=== PATIENT | male | born 1960 | race Caucasian/White ===

== ENCOUNTER → 2018-06-30 | Outpatient (CLI) | payer MEDICARE ==
[~2018-06-30] MED LIST: ATOR40TA78 PO; IBUP200C8 PO; MULT-658 PO; TRAZ-136 PO; VENL75TA PO
== END | disposition home or self-care (01) ==
LOC: MERGE 10:00 → STAR 10:04
PROVIDERS: ATTEND Surgery
DX: Z01.812 Encounter for preprocedural laboratory examination (principal); I44.4 Left anterior fascicular block; K40.90 Unilateral inguinal hernia, without obstruction or gangrene, not specified as recurrent
CPT/HCPCS: 93005

== ENCOUNTER 2018-07-07 08:09 | Day surgery (SDC) | payer MEDICARE ==
[~2018-07-07] VITALS: Ht 175.3 cm; Wt 79.5 kg
[~2018-07-07 08:09] MED LIST changes: +BUPIVACAINE/PF-EPI 0.5% 1:200K ONE
[2018-07-07] MEDS ORDERED: SCOPOLAMINE PATCH, 1.5MG PATCH.TD72 TD ONE (08:30)
[2018-07-07] MEDS ORDERED: GABAPENTIN 300 MG CAPSULE PO ONE (08:30)
[2018-07-07] MEDS ORDERED: LACTATED RINGERS 1,000 ML IV SCH (08:30)
[2018-07-07] MEDS ORDERED: ACETAMINOPHEN 500 MG TABLET PO ONE (08:30)
[2018-07-07] MEDS ORDERED: ONDANSETRON ODT 8 MG PO ONE (08:30)
[2018-07-07 08:32] VITALS: BP 123/77
[2018-07-07] MEDS ORDERED: FENTANYL PF 100 MCG/2ML ONE ×2 (09:11→10:11)
[2018-07-07] MEDS ORDERED: MIDAZOLAM 1 MG/ML, 2ML ONE (09:11)
[2018-07-07] MEDS ORDERED: ONDANSETRON 2MG/ML, 2ML ONE (09:20)
[2018-07-07] MEDS ORDERED: CEFAZOLIN 1,000 MG ONE (09:20)
[2018-07-07] MEDS ORDERED: DEXAMETHASONE 4 MG/ML, 1ML ONE (09:20)
[2018-07-07] MEDS ORDERED: PROPOFOL 10 MG/ML, 20ML ONE (09:20)
[2018-07-07] MEDS ORDERED: OXYcodone 5 MG/5 ML ORAL.SOL UDC ONE (11:04)
[2018-07-07] MEDS ORDERED: hydrALAzine 20 MG/ML, 1ML IV PRN (12:00)
[2018-07-07] MEDS ORDERED: MEPERIDINE/PF 25MG/0.5ML IVPush PRN (12:00)
[2018-07-07] MEDS ORDERED: LABETALOL 5MG/ML, 20ML IV PRN (12:00)
[2018-07-07] MEDS ORDERED: PROMETHAZINE 25 MG/ML, 1ML IV PRN (12:00)
[2018-07-07] MEDS ORDERED: ALBUTEROL SULFATE 2.5 MG/3 ML NPPB PRN (12:00)
[2018-07-07] MEDS ORDERED: HYDROmorphone 1 MG/ML, 1ML IV PRN (12:00)
[2018-07-07] MEDS ORDERED: OXYcodone 5 MG/5 ML ORAL.SOL UDC PO PRN (12:00)
[2018-07-07] MEDS ORDERED: LORazepam 2 MG/ML, 1ML IVPush PRN (12:00)
[2018-07-07] MEDS ORDERED: FENTANYL PF 100 MCG/2ML IV PRN (12:00)
== END 2018-07-07 13:45 | disposition home or self-care (01) ==
LOC: OUT 08:09 → MERGE 10:00 → OUT 13:45
PROVIDERS: ATTEND Surgery
DX: I48.91 Unspecified atrial fibrillation (principal); F17.210 Nicotine dependence, cigarettes, uncomplicated
CPT/HCPCS: 49650; C1781; J0690; J1100; J2250; J2405; J2704; J3010; J7120; Q0162

== ENCOUNTER 2018-10-09 23:50 | Emergency (ER) | payer MEDICARE ==
[~2018-10-09] VITALS: Ht 175.3 cm; Wt 82.0 kg
[~2018-10-09 23:50] MED LIST changes: -BUPIVACAINE/PF-EPI 0.5% 1:200K ONE; -TRAZ-136 PO; +TRAZ50TA66 PO
[2018-10-09 23:55] VITALS: BP 126/88
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
[2018-10-10] MEDS ORDERED: CITA10TA4 PO (00:09)
--- NOTE | 2018-10-10 00:40 | NUR ---
PT TO XRAY
--- NOTE | 2018-10-10 01:00 | NUR ---
TASK RN: PT RETURNED FROM CT, SITTING UP IN [facility], AWAKE/ALERT. SLIGHTLY SLURRED SPEECH NOTED. PT STATES THAT HE "HAS TO PEE" TO RESEARCH SPECIALIST. RESEARCH SPECIALIST OFFERED URINAL; PT REFUSING TO USE URINAL. RESEARCH SPECIALIST REPORTED TO RN THAT PT NEEDED TO URINATE AND REFUSING URINAL. THIS RN TO ROOM. PT NOT IN ROOM, FOUND IN BATHROOM. REFUSING TO PROVIDE UA SAMPLE, "I ALREADY WENT. YOU DON'T NEED THAT FROM ME. I KNOW I HAVE BROKEN RIBS- THIS ISN'T THE FIRST TIME". PT AMBULATED STEADILY TO ROOM WITH RN. "JUST SO YOU KNOW, I'LL BE WALKING OUT OF HERE IN 15 MINUTES" "IT WASN'T BY IDEA TO COME HERE- SO I'LL BE LEAVING". ERP MADE AWARE. SPO2 MONITOR IN PLACE. SPO2 >90%.
--- NOTE | 2018-10-10 01:05 | NUR ---
TASK RN: PT REFUSING TREATMENT. AMA PAPERWORK SIGNED WITH ERP. PT AMBULATED STEADILY TO DC WITH ERP
== END 2018-10-10 01:16 | disposition left against medical advice (07) ==
LOC: ED 10-10 00:37
DX: S22.41XA Multiple fractures of ribs, right side, initial encounter for closed fracture (principal); F17.210 Nicotine dependence, cigarettes, uncomplicated; Y04.0XXA Assault by unarmed brawl or fight, initial encounter; Y93.89 Activity, other specified; Y92.89 Other specified places as the place of occurrence of the external cause; Y99.8 Other external cause status
CPT/HCPCS: 93005; 99283